=== PATIENT | female | born 1995 | race Caucasian/White ===

== ENCOUNTER 2019-01-23 14:57 | Emergency (ER) | payer OTHER ==
[~2019-01-23] VITALS: Ht 170.2 cm; Wt 59.0 kg
--- NOTE | 2019-01-23 15:16 | NUR ---
PT A/OX4, PRESENTS TO THE ER C/O MULTIPLE ABSCESSES ON BILATERAL HANDS. PT REPORTS SHE IS AN IV HEROIN USER AND TYPICALLY INJECTS INTO THE HANDS. BILATERAL HAND PAIN THAT IS NON-PROVOKED, ACHING IN QUALITY, DOES NOT RADIATE, 2/10, CONSTANT. PT DENIES C/P, SOB, N/V/D, DIZZINESS, HEADACHE.
--- NOTE | 2019-01-23 15:23 | NUR ---
NICK DIETRICH AT BEDSIDE FOR MSE.
[2019-01-23] MEDS ORDERED: SULFAMETH/TRIMETH 800/160 MG TABLET ONE (15:34)
[2019-01-23] MEDS ORDERED: VANCOMYCIN IV 200 ML ONE (15:34)
[2019-01-23] MEDS ORDERED: VANCOMYCIN IV 1,000 MG in IV DEXTROSE 5% 250 ML IV ONE (15:45)
[2019-01-23] MEDS ORDERED: SULFAMETH/TRIMETH 800/160 MG TABLET PO ONE (15:45)
--- NOTE | 2019-01-23 16:50 | NUR ---
Patient discharged to home in stable conditon. Written and verbal after care instructions given. Patient verbalizes understanding of instructions. ALL BELONGINGS W/ PT. PT SELF-AMBULATED W/O DIFFICULTY. 20G IV ACCESS IN RAC REMOVED PRIOR TO D/C - INNER CANNULA INTACT. PT STATES HER AND HER BOYFRIEND WILL DRIVE PRIVATE VEHICLE TO ONE OF THE [place] HOMELESS SHELTERS IN THE AREA. PT PROVIDED W/ FOOD AND WATER.
== END 2019-01-23 16:55 | disposition home or self-care (01) ==
LOC: ER 15:00
DX: L03.113 Cellulitis of right upper limb (principal); L08.9 Local infection of the skin and subcutaneous tissue, unspecified; F11.10 Opioid abuse, uncomplicated; F17.200 Nicotine dependence, unspecified, uncomplicated; Z88.0 Allergy status to penicillin
CPT/HCPCS: 96365; 99283; J3370; A4663

== ENCOUNTER 2019-02-13 12:11 | Emergency (ER) | payer OTHER ==
[~2019-02-13] VITALS: Ht 170.2 cm; Wt 61.7 kg
--- NOTE | 2019-02-13 12:37 | NUR ---
Patient came here 2/2 recurrent skin infections. Patient admits to being non-compliant with her antibiotic therapy. Dr Wheat is at bedside doing the MSE.
[2019-02-13] MEDS ORDERED: VANCOMYCIN IV 200 ML ONE (12:50)
[2019-02-13] MEDS ORDERED: VANCOMYCIN IV 1,000 MG in IV DEXTROSE 5% 250 ML IV ONE (13:00)
[2019-02-13] MEDS ORDERED: NEOMY/BACITRA/POLYMYXIN B OINT UD PACKET TP ONE ×2 (13:15→13:30)
[2019-02-13] MEDS ORDERED: LIDOCAINE HCL 1% 20 ML VIAL TP ONE (13:15)
[2019-02-13 13:16] LABS: *URINE HCG, QUAL NEGATIVE (NEGATIVE)
[2019-02-13 13:18] LABS: BASOPHILS % (AUTO) 0.2 % (0.0-2.0); EOSINOPHILS % (AUTO) 0.1 % (0.0-7.0); HEMATOCRIT 31.8 % (31.2-41.9); HEMOGLOBIN 10.7 g/dL (10.9-14.3); LYMPHOCYTES # (AUTO) 1.3 K/uL (20.0-40.0); LYMPHOCYTES % (AUTO) 9.2 % (20.5-51.5); MEAN CORPUSCULAR HEMOGLOBIN 30.5 uug (24.7-32.8); MEAN CORPUSCULAR HGB CONC 34 g/dL (32.3-35.6); MEAN CORPUSCULAR VOLUME 90.5 fL (75.5-95.3); MONOCYTES # (AUTO) 1.1 K/uL (2.0-10.0); MONOCYTES % (AUTO) 7.6 % (0.0-11.0); NEUTROPHILS # (AUTO) 11.9 K/uL (1.8-8.9); NEUTROPHILS % (AUTO) 82.9 % (38.5-71.5); PLATELET COUNT (AUTO) 372 K/uL (179-408); RED BLOOD CELL COUNT(AUTO) 3.52 MIL/uL (3.63-4.92); WHITE BLOOD COUNT (AUTO) 14.3 K/uL (3.8-11.8)
[2019-02-13 13:25] LABS: CREATININE 0.9 mg/dL (0.6-1.3); POTASSIUM 4.3 mmol/L (3.5-5.1)
[2019-02-13 13:29] LABS: *AMPHETAMINE, URINE NEGATIVE (NEGATIVE); *BARBITURATE, URINE NEGATIVE (NEGATIVE); *CANNABINOID, URINE POSITIVE (NEGATIVE); *COCCAINE, URINE NEGATIVE (NEGATIVE); *OPIATE, URINE NEGATIVE (NEGATIVE); *PHENCYCLIDINE SCREEN,URINE NEGATIVE (NEGATIVE)
--- NOTE | 2019-02-13 13:56 | NUR ---
Patient is resting comfortably on gurney while watching bedside TV & using her personal electronic device, NAD, for disposition.
--- NOTE | 2019-02-13 14:26 | NUR ---
Patient discharged to home in stable conditon. Written and verbal after care instructions given. Patient verbalizes understanding of instructions. ALL BELONGINGS W/ PT. PT SELF-AMBULATED W/O DIFFICULTY. 20G IV ACCESS IN RAC REMOVED PRIOR TO D/C - INNER CANNULA INTACT.
[2019-02-13 14:27] VITALS: BP 110/77
== END 2019-02-13 14:28 | disposition home or self-care (01) ==
LOC: ER 12:12
DX: L02.414 Cutaneous abscess of left upper limb (principal); F11.10 Opioid abuse, uncomplicated; Z88.0 Allergy status to penicillin
CPT/HCPCS: 10060; 36415; 80048; 80307; 83605; 84703; 85025; 87040 ×2; 87070; 87077; 96365; 99284; J3370; J3490; A4663

== ENCOUNTER 2019-02-15 21:35 | Emergency (ER) | payer OTHER ==
[~2019-02-15] VITALS: Ht 170.2 cm; Wt 75.7 kg
[2019-02-15] MEDS ORDERED: MUPIROCIN 2% OINT 22 GM TUBE ONE (21:52)
--- NOTE | 2019-02-15 21:56 | NUR ---
Patient discharged to home in stable conditon. Written and verbal after care instructions given. Patient verbalizes understanding of instructions. Pt left ER with friend. No acute distress noted.
[2019-02-15 21:59] VITALS: BP 103/55
[2019-02-15] MEDS ORDERED: MUPIROCIN 2% OINT 22 GM TUBE TP ONE (22:00)
== END 2019-02-15 21:59 | disposition home or self-care (01) ==
LOC: ER 21:36
DX: L02.414 Cutaneous abscess of left upper limb (principal); F11.10 Opioid abuse, uncomplicated; Z88.0 Allergy status to penicillin
CPT/HCPCS: A4663

== ENCOUNTER 2019-02-26 11:18 | Emergency (ER) | payer OTHER ==
[~2019-02-26] VITALS: Ht 170.2 cm; Wt 61.7 kg
--- NOTE | 2019-02-26 11:47 | NUR ---
PATIENT WAS SEEN BY MD FOR SKIN WOUND ON RIGHT LEG.
[2019-02-26] MEDS ORDERED: SULFAMETH/TRIMETH 800/160 MG TABLET PO ONE (12:00)
[2019-02-26] MEDS ORDERED: LIDOCAINE 1%-EPI 1:100,000 20 ML VIAL TP ONE (12:00)
[2019-02-26] MEDS ORDERED: SULFAMETH/TRIMETH 800/160 MG TABLET ONE (12:09)
--- NOTE | 2019-02-26 12:18 | NUR ---
PATIENT IS SITTING UP EATING WARM MEATLOAF, MASHED POTATOES, VEGETABLES AND JUICE AND WATER. SHE IS AWAKE AND ALERT, SHE IS AMBULATORY IN STEADY GAIT.
--- NOTE | 2019-02-26 12:43 | NUR ---
STERILE DRESSING APPLIED. LIS APPLIED BEHAVIOR SCIENCE SPECIALIST ALSO SPOKE TO PATIENT. WE GAVE HER SOME CLEAN CLOTHES. SHE HAD A WARM LUNCH AND DRANK A LOT OF FLUIDS. SHE STATES SHE WANTS TO WALK BACK TO HER "PLACE". RESOURCES FOR PHARMACY AND PRESCRIPTION FILL HANDED TO HER AND EXPLAINED TO HER. SHE STATES SHE WILL GO FILL THE MEDICATION PRESCRIPTION NOW. DC, RX AND FOLLOW UP INSTRUCTIONS GIVEN AND EXPLAIND TO PATIENT WHO STATES SHE UNDERSTANDS ALL INSTRUCTIONS.
--- NOTE | 2019-02-26 14:22 | NUR ---
12:40pm: MUNIRA met with patient, per consultation request from ED RN Christina. Patient is a 23 year old female, who was receptive to meeting with this SW. Patient stated she has a "fdc" to stay at, and declined SW's assistance to refer patient to a homeless fdc. RN had already provided patient's with a lunch tray. SW assisted patient in identifying what resources patient may need, and patient was receptive to getting some clothes, and information on places where patient can go for meals and showers. SW provided patient with a pair of pants and a shirt. MUNIRA then provided patient with a homeless packet, which includes the [facility] Homeless Directory that has a list of places, with days/times, throughout the [facility] that homeless individuals can go for hot meals, sack lunches, showers, and food pantries. The packet MUNIRA provided also includes a list of pharmacies throughout the [facility], and a list of mental health and medical clinics, and substance abuse programs. Patient stated she already goes to . MUNIRA asked patient if she wanted a list of homeless shelters just in case she changes her mind, and patient agreed. SW provided patient with a list of homeless shelters: [facility]--[address] [place] [address], ; [facility]-- [address] [address], ; [facility]--[address] [place] [address], [phone]; [facility], [address] [place] [address], . Patient declined assistance offered with transportation, and stated that she prefers to walk. Patient signed Homeless Patient Waiver Form, and was discharged to self. The signed Homeless Patient Waiver Form filed in patient's ED chart.
== END 2019-02-26 12:53 | disposition home or self-care (01) ==
LOC: ER 11:18
DX: L02.415 Cutaneous abscess of right lower limb (principal); L03.115 Cellulitis of right lower limb; F19.10 Other psychoactive substance abuse, uncomplicated; F11.10 Opioid abuse, uncomplicated; Z88.0 Allergy status to penicillin
CPT/HCPCS: 10060; 99283; J3490; A4217; A4663

== ENCOUNTER 2019-03-02 06:59 | Emergency (ER) | payer OTHER ==
[~2019-03-02] VITALS: Ht 170.2 cm; Wt 61.7 kg
--- NOTE | 2019-03-02 07:11 | NUR ---
PT IS IN ROOM #2B. DR JORDAN EVALUATED THE PT.
--- NOTE | 2019-03-02 07:24 | NUR ---
PT WAS D/C'd TO HOME. D/C INSTRUCTIONS GIVEN TO THE PT BY DR JORDAN.
[2019-03-02 07:26] VITALS: BP 121/94
== END 2019-03-02 07:27 | disposition home or self-care (01) ==
LOC: ER 07:02
DX: L02.415 Cutaneous abscess of right lower limb (principal); L03.115 Cellulitis of right lower limb; F11.10 Opioid abuse, uncomplicated; Z88.0 Allergy status to penicillin
CPT/HCPCS: A4663

== ENCOUNTER 2019-03-12 18:38 | Emergency (ER) | payer OTHER ==
[~2019-03-12] VITALS: Ht 170.2 cm; Wt 63.5 kg
[2019-03-12] MEDS ORDERED: SULF1TAB48 PO (18:45)
--- NOTE | 2019-03-12 18:50 | NUR ---
NICK DIETRICH AT BEDSIDE FOR MSE.
[2019-03-12] MEDS ORDERED: CYCLOBENZAPRINE HCL 10 MG TABLET ONE (18:58)
[2019-03-12] MEDS ORDERED: LORAZEPAM 1 MG TABLET ONE (18:59)
[2019-03-12] MEDS ORDERED: LORAZEPAM 0.5 MG TABLET PO ONE (19:00)
[2019-03-12] MEDS ORDERED: CYCLOBENZAPRINE HCL 10 MG TABLET PO ONE (19:00)
--- NOTE | 2019-03-12 19:02 | NUR ---
Patient discharged to home in stable conditon. Written and verbal after care instructions given. Patient verbalizes understanding of instructions. ALL BELONGINGS W/ PT. PT SELF-AMBULATED W/O DIFFICULTY. PT WILL BE DRIVEN HOME BY BOYFRIEND IN PRIVATE VEHICLE.
[2019-03-12 19:05] VITALS: BP 116/66
== END 2019-03-12 19:07 | disposition home or self-care (01) ==
LOC: ER 18:41
DX: M62.838 Other muscle spasm (principal); R10.9 Unspecified abdominal pain; F11.10 Opioid abuse, uncomplicated; Z88.0 Allergy status to penicillin; Z79.899 Other long term (current) drug therapy
CPT/HCPCS: A4663

== ENCOUNTER 2019-11-17 13:26 | Emergency (ER) | payer OTHER ==
[~2019-11-17] VITALS: Ht 170.2 cm; Wt 56.7 kg
[~2019-11-17 13:26] MED LIST: SULF1TAB48 PO
[2019-11-17] MEDS ORDERED: SWABABLE VALVE TRANSFER SET EA MC ONE (14:00)
[2019-11-17] MEDS ORDERED: IOHEXOL 300MG/ML 100 ML INFUS..BTL ONE (14:01)
[2019-11-17] MEDS ORDERED: IV NORMAL SALINE 250 ML IV ONE (14:01)
[2019-11-17 14:21] LABS: CREATININE 0.8 mg/dL (0.6-1.3); POTASSIUM 3.8 mmol/L (3.5-5.1)
--- NOTE | 2019-11-17 15:00 | NUR ---
pt had couple of sandwiches with good apetite.
--- NOTE | 2019-11-17 16:07 | NUR ---
Patient given written and verbal discharge instructions. Patient verbalizes understanding of instructions. Patient is ambulatory with steady gait. Refuses offer of senior living placement. Patient given list of available shelters and resources in surrounding area.
[2019-11-17 16:08] VITALS: BP 114/71
--- NOTE | 2019-11-17 16:39 | NUR ---
2:30pm: Minibus Driver consultation requested by Dr. Crandall. SW discussed patient's case with Dr. Crandall. SW then met with the patient, who was in her assigned ED room. Patient is a 24 year old female, alert, oriented x 4, receptive to meeting with this SW, and cooperative. Patient states that she has been homeless for the last 6 months. Prior to being homeless, patient had just moved to [place] from [place] with her hilario Uribe. Patient stated getting into an argument with her fianc, and walking out on him. Patient has been homeless since, living mostly in homeless encampments. Patient stated that earlier today she had climbed up onto a tree and was tying a rope on the tree in order to then pull her tarp up, but as she was climbing down the tree, she slipped and fell, resulting in the rope getting wrapped around her neck. Patient denies intentional strangulation. Patient denies hx of SI or SA; patient denies current SI. 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 Patient reported that the last time she used heroin was yesterday. Patient has [facility], and receives food stamps. Patient states that although she predominantly stays on the streets, she does at times go to shelters. SW asked if there were any family or friends that MUNIRA can assist patient with contacting, and patient declined, stating that she will call her father later (Sebastián Morales [phone]). Discharge plans discussed, and patient stated that she will probably go to the [facility] in [place]. SW asked patient if she also wanted a list of the [place] shelters, and patient expressed agreement. Other homeless resources were discussed, such as food [place], substance abuse treatment programs, counseling services, medical and mental health clinics, and pharmacies, and patient expressed agreement with receiving the information. Patient once again stated that she will probably go to the [facility]. Transportation resources were discussed, and patient asked if MUNIRA could assist with this. MUNIRA offered a 1 day metro tap card, and patient was in agreement. BREEZY Andujar provided patient with a meal and clothing. Upon discharge, the homeless discharge packet was provided to the patient which includes the following resources: the 8860-5303 [facility] Program that provides locations of the [place] shelters in Service Areas 1 thru [place], along with locations and times where individuals can get picked up by the shelters; the [facility] homeless directory which provides a list of places that individuals can go to throughout the week for hot meals, sack lunches, food pantries, and showers; a list of mental health clinics: [facility] [address] [place] [address], ; [facility] [address] [place] [address], ; [facility] [address] [place] [address], ; medical clinics: [facility] [address], [place]. [place], ; [facility] [address], [address], [place] [address]; [facility] [address] [place] [address], ; and substance abuse programs: [facility] Substance Abuse Self-helpline ; [facility] ; [facility] ; [facility] ; [facility] ; [facility] [phone]; [facility] [phone]. SW also provided patient with information on locations of pharmacies. Patient signed the Homeless Patient Waiver form, and accepted the homeless resource packet and the 1 day Metro Tap card. Patient stated she will use the resources, as needed, and she will decide later on whether she wants to go to the [facility] in [place], or the [facility] pick-up location at [address] in [place]. MUNIRA informed Dr. Crandall of all above. Patient left the ED with all her belongings, ambulating with a steady gait.
== END 2019-11-17 16:09 | disposition home or self-care (01) ==
LOC: ER 13:26
DX: S10.91XA Abrasion of unspecified part of neck, initial encounter (principal); T71.9XXA Asphyxiation due to unspecified cause, initial encounter; F11.10 Opioid abuse, uncomplicated; Z88.0 Allergy status to penicillin; Z59.0 Homelessness; Z79.899 Other long term (current) drug therapy; W17.89XA Other fall from one level to another, initial encounter; Y93.89 Activity, other specified; Y92.89 Other specified places as the place of occurrence of the external cause; Y99.8 Other external cause status
CPT/HCPCS: 36415; 70491; 80048; 84702; 99284; Q9967; A4663; J7050